=== PATIENT | female | born 1980 | race Caucasian/White ===

== ENCOUNTER 2017-12-14 15:32 | Emergency (ER) | payer SELFPAY ==
[~2017-12-14] VITALS: Ht 157.5 cm; Wt 69.8 kg
[2017-12-14 15:56] VITALS: BP 127/76; Ht 157.5 cm; Wt 69.8 kg
== END 2017-12-14 17:49 | disposition home or self-care (01) ==
LOC: ED 15:32
DX: Z48.01 Encounter for change or removal of surgical wound dressing (principal); E11.9 Type 2 diabetes mellitus without complications

== ENCOUNTER 2018-06-30 20:12 | Inpatient (IN) | payer OTHER ==
[~2018-06-30] VITALS: Ht 157.5 cm; Wt 54.9 kg
[2018-06-30 21:20] LABS: BASOPHIL % 0.4 % (0-2); PLATELET COUNT 198 x10^3mcL (130-400); RED CELL DISTRIBUTION WIDTH 13.7 % (11.5-14.5)
[2018-06-30 21:41] LABS: ALKALINE PHOSPHATASE 121 U/L (46-116); ALT/SGPT 53 U/L (14-59); AST/SGOT 54 U/L (15-37); BILIRUBIN TOTAL 0.28 mg/dL (0.20-1.00); CALCIUM 8.2 mg/dL (8.5-10.1); CARBON DIOXIDE 23.6 mmol/L (21-32); CHLORIDE SERUM 103 mmol/L (98-107); CREATININE SERUM 0.8 mg/dL (0.6-1.0); GFR1 > 60 mL/min; GLUCOSE SERUM 131 mg/dL (74-106); LIPASE 138 IU/L (73-393); POTASSIUM SERUM 3.3 mmol/L (3.5-5.1); SODIUM SERUM 137 mmol/L (136-145); TOTAL PROTEIN, SERUM 6.3 g/dL (6.4-8.2)
[2018-06-30 21:42] LABS: ALBUMIN 2.7 g/dL (3.4-5.0); CK-MB 0.6 ng/mL (0-3.6)
[2018-06-30 22:01] LABS: C REACTIVE PROTEIN 21.4 mg/dL (<=0.9)
[2018-06-30 22:03] LABS: T3 TOTAL 0.78 ng/mL
[2018-06-30 22:14] LABS: FREE T4 0.95 ng/dL (0.76-1.46); FREE THYROXINE INDEX 2.1 ug/dL (1.4-4.5); T4(THYROXINE) 6.1 ug/dL (4.7-13.3)
[2018-06-30 22:28] LABS: ERYTHROCYTE SED RATE 30 mm/hr (0-20)
[2018-06-30 22:32] LABS: UA SPECIFIC GRAVITY <=1.005 (1.005-1.035); microscopic required? YES; urine erythrocyte 1+ (NEGATIVE)
[2018-06-30 22:46] LABS: AMPHETAMINE QUAL UR POSITIVE (See below)
[2018-07-01 01:19] VITALS: BP 121/70
[2018-07-01 05:42] VITALS: BP 96/52
[2018-07-01 08:10] VITALS: BP 101/60
[2018-07-01 12:13] VITALS: BP 108/61
[2018-07-01 16:03] VITALS: BP 107/59
[2018-07-01 21:18] VITALS: BP 100/76
[2018-07-02 05:41] VITALS: BP 100/60
[2018-07-02 06:43] LABS: ALKALINE PHOSPHATASE 132 U/L (46-116); ALT/SGPT 63 U/L (14-59); AST/SGOT 52 U/L (15-37); BILIRUBIN TOTAL 0.25 mg/dL (0.20-1.00); CARBON DIOXIDE 24.9 mmol/L (21-32); CHLORIDE SERUM 103 mmol/L (98-107); CREATININE SERUM 0.8 mg/dL (0.6-1.0); GFR1 > 60 mL/min; GLUCOSE SERUM 115 mg/dL (74-106); MAGNESIUM 1.8 mg/dL (1.8-2.4); POTASSIUM SERUM 4.2 mmol/L (3.5-5.1); SODIUM SERUM 137 mmol/L (136-145); TOTAL PROTEIN, SERUM 6.6 g/dL (6.4-8.2)
[2018-07-02 06:44] LABS: ALBUMIN 2.5 g/dL (3.4-5.0)
[2018-07-02 07:54] VITALS: BP 131/72
== END 2018-07-02 12:29 | disposition left against medical advice (07) | DRG 720 ==
LOC: ED 20:12 → DU 07-01 00:06
PROVIDERS: Internal Medicine; Specialist
DX: A41.9 Sepsis, unspecified organism (principal); N10 Acute pyelonephritis; E11.9 Type 2 diabetes mellitus without complications; F15.10 Other stimulant abuse, uncomplicated; F10.20 Alcohol dependence, uncomplicated; E87.6 Hypokalemia; Z53.21 Procedure and treatment not carried out due to patient leaving prior to being seen by health care provider; Z98.51 Tubal ligation status
CPT/HCPCS: 36600; 84439; G0480; J0696; J1170; J1580; J1644; J2060; J2270; J2405; J3010; J3475; J3490; J7030; J7050; Q0092; Q9967

== ENCOUNTER 2020-02-03 16:15 | Emergency (ER) | payer MEDICAID ==
[~2020-02-03] VITALS: Ht 157.5 cm; Wt 68.5 kg
[2020-02-03 16:20] VITALS: Ht 157.5 cm; Wt 68.5 kg
[2020-02-03 16:59] LABS: BASOPHIL % 0.5 % (0-2); PLATELET COUNT 285 x10^3mcL (130-400); RED CELL DISTRIBUTION WIDTH 13.9 % (11.5-14.5)
[2020-02-03 17:09] LABS: CALCIUM 9.5 mg/dL (8.5-10.1); CARBON DIOXIDE 24.8 mmol/L (21-32); CHLORIDE SERUM 102 mmol/L (98-107); CREATININE SERUM 0.9 mg/dL (0.6-1.0); GFR1 > 60 mL/min; GLUCOSE SERUM 110 mg/dL (74-106); POTASSIUM SERUM 4.3 mmol/L (3.5-5.1); SODIUM SERUM 138 mmol/L (136-145)
[2020-02-03 17:15] LABS: ALBUMIN 3.7 g/dL (3.4-5.0); ALKALINE PHOSPHATASE 130 U/L (46-116); ALT/SGPT 73 U/L (14-59); AMYLASE 52 U/L (25-115); AST/SGOT 43 U/L (15-37); BILIRUBIN TOTAL 0.22 mg/dL (0.20-1.00); LIPASE 95 IU/L (73-393); TOTAL PROTEIN, SERUM 7.6 g/dL (6.4-8.2)
[2020-02-03 19:21] VITALS: BP 120/68
== END 2020-02-03 19:21 | disposition home or self-care (01) ==
LOC: ED 16:15
PROVIDERS: Emergency Medicine
DX: N39.0 Urinary tract infection, site not specified (principal); E11.9 Type 2 diabetes mellitus without complications
CPT/HCPCS: J1885; J2405; J7030; Q9967